=== PATIENT | female | born 1955 | race Caucasian/White ===

== ENCOUNTER 2021-05-24 11:12 | Inpatient (IN) | payer OTHER ==
[~2021-05-24] VITALS: Ht 160 cm; Wt 117.2 kg
[2021-05-24] VITALS (9 sets, daily range): BP systolic 126–173; BP diastolic 43–74
[2021-05-24 11:53] LABS: ABSOLUTE NEUTROPHILS 3.4 thou/uL (1.4-8.2); BASOPHILS 0.4 % (0.0-2.0); EOSINOPHILS 0.9 % (0.0-3.0); HEMATOCRIT 39.3 % (37.0-47.0); LYMPHOCYTES 12.9 % (24.0-44.0); MCH 29.5 pg (26.0-34.0); MCHC 33.2 g/dL (28.0-37.0); MCV 89.1 fL (80.0-100.0); MONOCYTES 8.4 % (1.0-8.0); PLATELET COUNT 108 thou/uL (150-400); POLYS 77.4 % (36.0-66.0); RBC 4.41 mil/uL (4.20-5.00); RDW 14.9 % (10.5-14.5); WBC 4.3 thou/uL (4.0-11.0)
[2021-05-24 12:39] LABS: BE(vivo) -0.9 mmol/L (-2 to +3); HCO3 23.3 mmol/L (22.0-26.0); PCO2 37.2 mmHg (35.0-45.0); PO2 58.4 mmHg (80.0-100.0); pH 7.414 (7.360-7.450); sO2 90.8 % (92.0-98.0)
[2021-05-24 15:30] LABS: BE(vivo) -1.9 mmol/L (-2 to +3); HCO3 22.8 mmol/L (22.0-26.0); PCO2 38.7 mmHg (35.0-45.0); PO2 73.4 mmHg (80.0-100.0); pH 7.388 (7.360-7.450); sO2 94.7 % (92.0-98.0)
--- NOTE | 2021-05-24 17:40 | NUR ---
ICU CALLED TO GIVE INPATIENT REPORT, WAS TOLD NURSES INCLUDING RECEIVING NURSE WERE IN A ROOM FOR INTUBATION AND TO CALL BACK IN A FEW MINUTES.
--- NOTE | 2021-05-24 18:02 | NUR ---
CALLED ICU AGAIN AT THIS TIME X 3. CALLS UNANSWERED
[2021-05-24 18:26] LABS: CALCIUM 8.5 mg/dL (8.5-10.1); POTASSIUM 5.2 mmol/L (3.5-5.1); TOTAL BILIRUBIN 0.5 mg/dL (0.2-1.0); TOTAL PROTEIN 7.3 g/dL (6.4-8.2)
[2021-05-25] VITALS (28 sets, daily range): BP systolic 139–184; BP diastolic 45–82
--- NOTE | 2021-05-25 00:57 | NUR ---
PATIENT ARRIVED AT THE UNIT AT APPROX 1900. PATIENT IS A/OX4. DENIES N/V, PAIN. ON BIPAP WITH FI02 OF 100%. AFEBRILE. VSS. ORTEGA IN PLACE WITH GOOD U/O. ATTACHED TO THE MONITOR. DENIES NEEDS. WILL KEEP MONITORING
[2021-05-25 05:39] LABS: HEMATOCRIT 38.4 % (37.0-47.0); MCH 30.1 pg (26.0-34.0); MCHC 33.9 g/dL (28.0-37.0); MCV 88.6 fL (80.0-100.0); RBC 4.33 mil/uL (4.20-5.00); RDW 14.4 % (10.5-14.5); WBC 2.7 thou/uL (4.0-11.0)
[2021-05-25 05:54] LABS: ALBUMIN 2.6 g/dL (3.4-5.0); CALCIUM 8.4 mg/dL (8.5-10.1); CREATININE 0.8 mg/dL (0.6-1.0); DIRECT BILIRUBIN 0.1 mg/dL (<0.1-0.2); POTASSIUM 4.6 mmol/L (3.5-5.1); TOTAL BILIRUBIN 0.4 mg/dL (0.2-1.0); TOTAL PROTEIN 6.6 g/dL (6.4-8.2)
--- NOTE | 2021-05-25 08:58 | HC ---
[facility] [place] [address] CONSULTATION Name: JASON FARR Room #: 240-P ADM IN M.R.#: [id number] Admission: 05/24/21 Attend Phys: Igor Padron MD Discharge: Date of : 55 Report #: [id number] THIS REPORT FOR: cc: Franchesca Tran MD, Keninde A. MD Barry,Juan Brown MD ~ DATE OF SERVICE: 05/24/2021 INFECTIOUS DISEASE CONSULTATION ATTENDING PHYSICIAN: Dr. Padron. REASON FOR EVALUATION: COVID-19 infection, complicated by pneumonitis with acute on chronic respiratory failure. HISTORY OF PRESENT ILLNESS: Chart reviewed. The patient examined. This is a 65-year-old with known history of O2 requiring COPD at 3 liters per nasal cannula who over the last few days, has noted some progressive weakness and dyspnea that has worsened over the course of last few hours. She did have a productive cough of colored sputum, did have fever as high as 102 as well. She had poor p.o. intake, loss of taste and smell. It is notable she had Moderna vaccination in December. She is generally lucid. Evaluation noted positive coronavirus testing, chest x-ray with bilateral infiltrates. ABG showed a pH 7.414, pCO2 of 37.2, pO2 of 58.4 on nonrebreather. She is currently on a BiPAP, FiO2 100%. She was initiated on therapy with ceftriaxone and azithromycin as well as dexamethasone. ALLERGIES: LISTED TO GLIPIZIDE, MORPHINE, CODEINE, ALBUTEROL, PREDNISONE CAUSES DEPRESSION, SIMVASTATIN, PAROXETINE, METFORMIN, DOXEPIN, TRAZODONE, CYCLOBENZAPRINE, MIRTAZAPINE, FEXOFENADINE, OLANZAPINE, MELOXICAM, ATORVASTATIN, ROSIGLITAZONE, DULOXETINE, SITAGLIPTIN. PAST MEDICAL HISTORY: Above noted O2 requiring COPD. SOCIAL HISTORY: Nonsmoker. No ethanol, tobacco or illicit drug use. FAMILY HISTORY: Noncontributory. REVIEW OF SYSTEMS: Otherwise, unremarkable. Denies significant GI related complaints. PHYSICAL EXAMINATION: GENERAL: She appears chronically ill and undernourished. She is generally lucid. Has difficulty speaking due to the BiPAP, but is tracking well. She is chronically ill appearing and undernourished. VITAL SIGNS: Temperature not recorded, pulse 65, respirations 30, blood [address] [address] CONSULTATION Name: JASON FARR Room #: 240-P [facility] IN M.R.#: [id number] Admission: 05/24/21 Attend Phys: Igor Padron MD Discharge: Date of : 55 Report #: [id number] pressure 152/59. SKIN: Warm, dry, no rashes. HEENT: Normocephalic. Extraocular muscles intact. BiPAP in place. NECK: Supple. LUNGS: Scattered coarse breath sounds bilaterally. HEART: Distant, regular. I do not appreciate a murmur. ABDOMEN: Obese, somewhat distended, firm, nontender. EXTREMITIES: No cyanosis. GENITOURINARY AND RECTAL: Deferred. LABORATORY DATA: ABGs: pH 7.388, pCO2 of 38.7, pO2 of 73.4, FiO2 of 100%. ProBNP of 137. Lactic acid 1.4. Troponin less than 0.06. CBC: White count of 4.3, H and H 13.0 and 39.3, platelets of 108. IMAGING STUDIES: Chest x-ray: Diffuse alveolar pulmonary infiltrates, mild cardiomegaly. ASSESSMENT: COVID-19 infection, complicated by pneumonitis and acute on chronic respiratory failure, may be multifactorial, can exclude a component of congestive heart failure. PLAN: We will continue empiric therapy, make adjustments to the antibacterials, initiate remdesivir in addition to corticosteroids and vitamins. Discussed with pharmacy, likely candidate for Actemra. She remains quite tenuous at this point and may well have deteriorating status before she improves. Continue to monitor expectantly and risk for additional complications. <ELECTRONICALLY SIGNED> By: Juan Gloria MD 05/25/21 0858 [id number] [id number] Juan Gloria MD /nt
--- NOTE | 2021-05-25 09:42 | EKG ---
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
--- NOTE | 2021-05-25 13:54 | NUR ---
Patient admits with SOA, admitted to ICU. Patient currently on Bipap. Patient positive with COVID 19. Rec moderna vaccine in december. Son Jeramie contact [phone]. Chart reviewed. Attempted to call unit. RN unable to answer. [facility] following.
--- NOTE | 2021-05-25 14:39 | NUR ---
1145HRS - ATTEMPT TO HAVE PT PRONE HERSELF WITH ASSISTANCE, PT REFUSED.
--- NOTE | 2021-05-25 23:34 | NUR ---
PATIENT REMAINS A/O X4. DENIES ANY SOA. N/V. MEDS GIVEN ORDERED.PATIENT HAS TX ORDERS. REPORT CALLED TO 3W RN. PATIENT OFF THE UNIT AT APPROX 2300 VIA WHEELCHAIR. ON RA. ATTACHED TO MONITOR. ALL QUESTIONS ANSWERED.
[2021-05-26] VITALS (24 sets, daily range): BP systolic 149–189; BP diastolic 51–77
[2021-05-26 04:31] LABS: HEMATOCRIT 39.7 % (37.0-47.0); HEMOGLOBIN 13.5 gm/dL (12.0-15.0); MCH 30.2 pg (26.0-34.0); MCV 88.9 fL (80.0-100.0); RBC 4.46 mil/uL (4.20-5.00); RDW 14.8 % (10.5-14.5); WBC 5.8 thou/uL (4.0-11.0)
[2021-05-26 04:49] LABS: ALBUMIN 2.6 g/dL (3.4-5.0); CALCIUM 8.1 mg/dL (8.5-10.1); CREATININE 0.8 mg/dL (0.6-1.0); DIRECT BILIRUBIN 0.2 mg/dL (<0.1-0.2); PHOSPHORUS 2.2 mg/dL (2.6-4.7); POTASSIUM 4.3 mmol/L (3.5-5.1); TOTAL BILIRUBIN 0.5 mg/dL (0.2-1.0); TOTAL PROTEIN 6.5 g/dL (6.4-8.2)
--- NOTE | 2021-05-26 14:15 | NUR ---
PT CONFORTABLE IN BED. TACHYPNEIC BUT SAYS SHE DOES NOT FEEL FATIGUED. RN EDUCATED PT ON IMPORTANCE TO LET RN KNOW IF SHE IS FEELING TIRED. PT AFEBRILE, ADEQUATE UOP, NO BM, NO DIET ORDERED. PT REPOSITIONS SELF. NEEDS HOME HTN MEDS RESTARTED. PT HAS BEEN THOUROUGHLY UPDATED AND EDUCATED ON PT CONDITION AND POC. PT SLOWLY PROGRESSING TOWARDS POC.
--- NOTE | 2021-05-26 19:29 | NUR ---
CALLED DR. REINA. PT HAS NO CENTRAL LINE TO START TPN. MD STATES TO CHANGE TO PPN FOR NOW.
--- NOTE | 2021-05-26 19:30 | NUR ---
PT NOT MOVING TOWARDS GOALS. REMAINS ON BIPAP AT 90%. READILY DESATS WITH MOVEMENT.
[2021-05-27] VITALS (20 sets, daily range): BP systolic 140–179; BP diastolic 50–76
[2021-05-27 03:13] LABS: HEMATOCRIT 41.3 % (37.0-47.0); MCH 29.6 pg (26.0-34.0); MCHC 33.8 g/dL (28.0-37.0); MCV 87.6 fL (80.0-100.0); RBC 4.72 mil/uL (4.20-5.00); RDW 14.7 % (10.5-14.5); WBC 8.7 thou/uL (4.0-11.0)
[2021-05-27 03:25] LABS: MAGNESIUM 1.9 mg/dL (1.8-2.4); PHOSPHORUS 2.4 mg/dL (2.5-4.9)
[2021-05-27 03:29] LABS: CALCIUM 8.2 mg/dL (8.5-10.1); CREATININE 0.7 mg/dL (0.6-1.0); POTASSIUM 4.2 mmol/L (3.5-5.1)
[2021-05-27 03:30] LABS: ALBUMIN 2.8 g/dL (3.4-5.0); CALCIUM 8.3 mg/dL (8.5-10.1); CREATININE 0.7 mg/dL (0.6-1.0); DIRECT BILIRUBIN 0.2 mg/dL (<0.1-0.2); PHOSPHORUS 2.3 mg/dL (2.5-4.9); POTASSIUM 4.2 mmol/L (3.5-5.1); TOTAL BILIRUBIN 0.6 mg/dL (0.2-1.0); TOTAL PROTEIN 6.5 g/dL (6.4-8.2)
--- NOTE | 2021-05-27 09:03 | NUR ---
ASSSUMED CARE OF PT AT 0700 PT COMPLAINING OF CHEST PAIN THAT RADIATES TO HER BACK. PAIN IS 08/12. DR. LAURA CONTACTED FOR ORDERS AT 0903.
--- NOTE | 2021-05-27 10:40 | EKG ---
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: JOSE MIGUEL : 1955 Requested By: Igor Padron Order Number: [id number] MD: Claudy Starr Measurements Intervals [place] Rate: 71 P: 44 DC: 142 QRS: -15 QRSD: 122 T: -1 QT: 425 QTc: 462 Interpretive Statements Sinus rhythm Right bundle branch block Left ventricular hypertrophy Compared to ECG 05/24/2021 11:19:51 No significant changes Electronically Signed On 05-27-2021 10:40:13 CDT by Claudy Starr [email or web address] <ELECTRONICALLY SIGNED> By: Claudy Starr MD, [facility] 05/27/21 1040 6 6 Claudy Starr MD, FAC /EPI
[2021-05-28] VITALS (40 sets, daily range): BP systolic 136–198; BP diastolic 44–78
[2021-05-28 04:17] LABS: PHOSPHORUS 2.6 mg/dL (2.5-4.9)
[2021-05-28 04:21] LABS: ALBUMIN 2.9 g/dL (3.4-5.0); CALCIUM 8.3 mg/dL (8.5-10.1); CREATININE 0.7 mg/dL (0.6-1.0); DIRECT BILIRUBIN 0.2 mg/dL (<0.1-0.2); PHOSPHORUS 2.6 mg/dL (2.5-4.9); POTASSIUM 3.9 mmol/L (3.5-5.1); TOTAL BILIRUBIN 0.6 mg/dL (0.2-1.0); TOTAL PROTEIN 6.4 g/dL (6.4-8.2)
--- NOTE | 2021-05-28 11:45 | NUR ---
Discussed during los and unite rounds. possible will need to be intubated today. going to get central line for nutritional support. will cont following as needed for dc needs.
--- NOTE | 2021-05-28 11:51 | NUR ---
RN ASSUMED CARE AT 0700. PT A&OX4. PT ON BIPAP AT 100% FIO2 WITH O2 SAT 91%. PULMONARY DOCTOR ROUNDED THIS AM AND STATES HIS PLAN TO INTUBATE PT TODAY BETWEEN 12:30-1300. PT IS AWARE OF PLAN TO INTUBATE.
--- NOTE | 2021-05-28 12:05 | NUR ---
RN ATTEMPTED TO CALL PT'S SON ALPA. ALPA DID NOT ANSWER 1ST PHONE CALL ATTEMPT BUT DID CALL BACK AND RN SPOKE WITH HIM. ALPA HAS NOT BEEN CONTACTED THAT PT WAS EVEN IN HOSPITAL OR WAS FIGHTING COVID. ALPA THANKED RN FOR CALLING HIM AND ASKED THAT WE TELL HIS MOM THAT HE AND HIS BROTHER LOVE HER. RN REASSURED HIM THAT SHE WILL LET THE PATIENT KNOW. ALPA'S NUMBER IS [phone].
--- NOTE | 2021-05-28 12:30 | NUR ---
ICU rounds: note pending intubation. Keep on PPN until ready to start enteral nutrition, then recommend vital HP at 30ml/hr. Will continue to follow for final goal rate depending on pts propofol demands
--- NOTE | 2021-05-28 15:34 | NUR ---
VAT CONSULTED FOR CVAD. PT'S LABS,MEDS,HX,ORDER REVIEWED. DISCUSSED BENEFITS AND RISK TO PT, VERBALIZED UNDERSTANDING. WHEN ATTEMPTING TO POSITION PT TO ASSESS IJ'S. PT UNABLE TO TOLERATED HOB LOWERED, WHEN ATTEMPTING PT LIFTED HER HEAD OFF THE PILLOW TO SIT UP. DISCUSSED WITH PT THAT PICC LINE MAYBE BETTER SINCE PT CAN'T POSITION. PT LESS ANXIOUS ABOUT PICC. AMOL BASILIC WAS WIDELY PATENT WITH USG, MEASURED 38%. 5FR TL POWER PICC TRIMMED TO 45CM INSERTED TO 3CM EXTERNAL HAD PEAKED-PWAVES ON 3CG FOR CONFIRMATION. PT TOLERATED WELL AND PICC RELEASED FOR IMMEDIATE USE PER PROTOCOL TO HALIE LONG
--- NOTE | 2021-05-28 16:34 | NUR ---
DR. LOERA ROUNDED AT 1615 AND DECIDED PT DID NOT NEED TO BE INTUBATED AT THIS TIME. WILL CLOSELY MONITOR PT FOR ANY STATUS CHANGES. WILL NOTIFY FAMILY THAT PT WAS NOT INTUBATED AT THIS TIME.
--- NOTE | 2021-05-28 19:23 | NUR ---
PT'S SON COTY WAS CALLED AND UPDATED THAT PHYSICIAN DECIDED NOT TO INTUBATE AT THIS TIME.
[2021-05-29] VITALS (57 sets, daily range): BP systolic 65–162; BP diastolic 31–78
[2021-05-29 05:27] LABS: BE(vivo) 0 mmol/L (-2 to +3); PCO2 37.1 mmHg (35.0-45.0); pH 7.428 (7.360-7.450); sO2 89.1 % (92.0-98.0)
[2021-05-29 05:28] LABS: PO2 54.1 mmHg (80.0-100.0)
[2021-05-29 05:54] LABS: HEMATOCRIT 40.9 % (37.0-47.0); HEMOGLOBIN 13.9 gm/dL (12.0-15.0); MCH 29.7 pg (26.0-34.0); MCV 87.3 fL (80.0-100.0); RBC 4.68 mil/uL (4.20-5.00); RDW 14.6 % (10.5-14.5)
[2021-05-29 06:20] LABS: CALCIUM 8.7 mg/dL (8.5-10.1); CREATININE 0.7 mg/dL (0.6-1.0); MAGNESIUM 1.8 mg/dL (1.8-2.4); PHOSPHORUS 3.1 mg/dL (2.6-4.7)
--- NOTE | 2021-05-29 08:16 | NUR ---
ASSUME CARE 1900. PT/VITALS STABLE. INTERMITTENT NECK PAIN WITH RELIEF FROM TYLENOL. PT DESATS WITH MILD EXERTION. ON BIPAP WITH 100% FIO2 AND SATS 90-92%. ASSESSMENT CHARTED. PROGRESSING POORLY TOWARDS POC. BP RUNS HIGH WITH HYDRALAZINE ORDERS FOR SBP> 160. A/O X 4. COMMUNICATES NEEDS WELL. PLAN IS TO CONTINUE TO MONITOR AND MANAGE RESPIRATORY SYSTEM/INFECTION. WILL CONTINUE TO MONITOR AND FOLLOW WITH POC
--- NOTE | 2021-05-29 10:30 | NUR ---
PT NEEDING INTUBATION PROCEDURE DONE AT THIS TIME, CONSENT FORM NEXT TO RN, RN ATTEMPTED TO CALL PT'S SON ON FILE NUMBER [phone], NO ANSWER AT THIS TIME. PT NOT ABLE TO SIGN CONSENT, PT IS HYPOXIC (REASON FOR INTUBATION), AWAITING PHYSICIANS DECISION AT THIS TIME
[2021-05-29 13:45] LABS: BE(vivo) -4.1 mmol/L (-2 to +3); HCO3 21.1 mmol/L (22.0-26.0); PCO2 39.2 mmHg (35.0-45.0); pH 7.348 (7.360-7.450); sO2 90.7 % (92.0-98.0)
--- NOTE | 2021-05-29 15:36 | NUR ---
SW reviewed chart and spoke with nursing and attending physician. Pt remains in the ICU in Enhanced Isolation due to COVID. Pt was intubated earlier today. Pt is afebrile and on IV abx and IV steroids. NILDA spoke with pt's son, Jeramie, via phone. Introduced role of SW. Pt is normally alert/orientated x 4. Pt lives alone in an apt with elevator access at [facility]. Pt has a scooter. Pt is on home O2. Pt's son is unsure name of home O2 provider and liter flow. Pt has had HH in the past. No hx of post-acute placement. Pt's PCP is Dr. Franchesca Tran. Pt's son, Jeramie, lives in [place] and his brother, Jorge Luis, lives in [place]. Pt does have a sister who lives in area. Therapy evals will need to be ordered when pt is able to participate. NILDA is following to assist as needed with discharge planning.
--- NOTE | 2021-05-29 21:36 | NUR ---
AT THE TIME OF ARRIVAL PT WAS AT O2 SAT OF 88% WHILE ON 100% BIPAP, WAS REACHED AND NOTIFIED AND ASKED IF INTUBATION WAS IN THE PLANS TODAY. AT 1100 PT INTUBATED AND LATER IN THE EVENING PT BRONCHED. WAS AT O2 SAT OF 89% S/P INTUBATION. WRIST RESTRAINTS WERE PLACED. PT'S SON WAS CALLED TO NOTIFY OF EVENTS, RN NOTIFIED THAT PT WAS ON THE VENTILATOR MACHINE AT THIS TIME AND ON THE MAXIMAL SETTING ON THE FIO2. SON VERBALIZED UNDERSTANDING AND STATED THAT HE WILL CALL AT A LATER TIME. RN PROVIDED REPORT, RN SIGNING OFF
[2021-05-29 23:42] LABS: BE(vivo) -8.7 mmol/L (-2 to +3); HCO3 22.1 mmol/L (22.0-26.0); PO2 99.7 mmHg (80.0-100.0); sO2 95.1 % (92.0-98.0)
[2021-05-29 23:43] LABS: PCO2 69.2 mmHg (35.0-45.0); pH 7.122 (7.360-7.450)
[2021-05-30] VITALS (52 sets, daily range): BP systolic 103–138; BP diastolic 40–58
[2021-05-30 04:48] LABS: BE(vivo) -1.2 mmol/L (-2 to +3); HCO3 28.9 mmol/L (22.0-26.0); PO2 85.1 mmHg (80.0-100.0); sO2 93.9 % (92.0-98.0)
[2021-05-30 04:49] LABS: PCO2 73.6 mmHg (35.0-45.0); pH 7.212 (7.360-7.450)
[2021-05-30 05:20] LABS: CALCIUM 7.4 mg/dL (8.5-10.1); CREATININE 1.1 mg/dL (0.6-1.0); MAGNESIUM 2.2 mg/dL (1.8-2.4); PHOSPHORUS 6.3 mg/dL (2.5-4.9)
[2021-05-30 05:36] LABS: POTASSIUM 5.3 mmol/L (3.5-5.1)
--- NOTE | 2021-05-30 06:14 | NUR ---
ASSUMED CARE OF PATIENT AT 1900. O2 IN THE 'S. DR MONTANO NOTIFIED, AND CAME TO BEDSIDE. VENT SETTING ADJUSTED. SLIGHT IMPROVEMENT, THEN DECLINE IN O2 SAT, RESPIRATIONS INCREASED. DR MONTANO NOTIFIED, ORDER FOR NIMBEX RECIEVED. NIMBEX INITIATED, TITRATED TO DECREASE RESPIRATORY RATE. BLOOD SUGARS CRITICALLY HIGH, ORDERS RECIEVED FROM Demetris ISSA NP. BLOOD SUGARS CONTINUE TO BE CRITICALLY HIGH, INSULIN GTT ORDERED. PATIENT NOT PROGRESSING TOWARDS POC GOALS.
--- NOTE | 2021-05-30 09:40 | NUR ---
PATIENT'S SON, ALPA, WAS CALLED AT [phone] AND HE WAS UPDATED AND EDUCATED ON THE PATIENT'S CONDITION AND PLAN OF CARE.
--- NOTE | 2021-05-30 16:29 | 2DMMODE ---
[facility] [place] [address] 2 D/M-MODE ECHOCARDIOGRAM Name: JASON FARR Room #: 240-P ADM IN M.R.#: [id number] Admission: 05/24/21 Attend Phys: Igor Padron MD Discharge: Date of : 55 Report #: [id number] THIS REPORT FOR: cc: Franchesca Tran MD, Keninde A. MD Lundgren,Claudy David MD [facility] ~ APPROVED REPORT Patient Location: In-Patient ICU Room #: 240 Stress Nurse: Heart rate 67 bpm. Blood pressure 132/37mmHg. Very limited study. Patient is Covid positive, morbid obesity, supine on a ventilator. Limited images Grossly normal chamber sizes. Left ventricular systolic function appears normal ejection fraction 60-65% with normal wall thickness. No valvular abnormalitiesare noted. There is n No pericardial effusion. Conclusion <ELECTRONICALLY SIGNED> By: Claudy Starr MD, [facility] 05/30/21 1628 27 27 Claudy Starr MD, FACC /INF
[2021-05-31] VITALS (39 sets, daily range): BP systolic 109–156; BP diastolic 44–66
--- NOTE | 2021-05-31 03:00 | NUR ---
Pt's son call for an updates.
[2021-05-31 05:31] LABS: ABSOLUTE NEUTROPHILS 10.1 thou/uL (1.4-8.2); BASOPHILS 0.3 % (0.0-2.0); EOSINOPHILS 0.4 % (0.0-3.0); HEMATOCRIT 34.2 % (37.0-47.0); LYMPHOCYTES 4.3 % (24.0-44.0); MCH 29.4 pg (26.0-34.0); MCHC 33.4 g/dL (28.0-37.0); MCV 87.9 fL (80.0-100.0); MONOCYTES 4.7 % (1.0-8.0); POLYS 90.3 % (36.0-66.0); RBC 3.89 mil/uL (4.20-5.00); WBC 11.3 thou/uL (4.0-11.0)
[2021-05-31 06:16] LABS: D-DIMER 2.23 ug/mLFEU (0.19-0.50); INR 1.11
[2021-05-31 06:17] LABS: HEMOGLOBIN 11.4 gm/dL (12.0-15.0); PLATELET COUNT 109 thou/uL (150-400)
[2021-05-31 06:37] LABS: ALBUMIN 2.3 g/dL (3.4-5.0); CREATININE 0.7 mg/dL (0.6-1.0); TOTAL BILIRUBIN 0.3 mg/dL (0.2-1.0); TOTAL PROTEIN 5.1 g/dL (6.4-8.2)
[2021-05-31 06:41] LABS: POTASSIUM 4.1 mmol/L (3.5-5.1)
--- NOTE | 2021-05-31 07:00 | NUR ---
Pt remains in critical conditions. Continue to be on vent ,sedated and paralyzed due to ARDS. She is tolerated well. No sedation vacation in this shift due to above conditions. She is on high PEEP ,noted sub-q air on chest and neck areas. VSS. CXR obtained . Notified for above fidning. She is not making any progress in this shift.
--- NOTE | 2021-05-31 09:50 | NUR ---
SPOKE WITH SON FROM [place] AND UPDATED HIM ON HIS MOTHER'S STATUS, QUESTIONS ANSWERED AND REASSURANCE GIVEN.
--- NOTE | 2021-05-31 20:20 | NUR ---
PATIENT IS NOT PROGRESSING TOWARDS OUTCOME GOALS SHE REMAINS SEDATED AND PARALIZED FOR VENT MANAGEMENT. O2 SAT REMAINS IN THE UPPER 90'S. PLEASE REFER TO ASSESSMENTS.
[2021-06-01] VITALS (48 sets, daily range): BP systolic 120–180; BP diastolic 50–88
[2021-06-01 04:50] LABS: ALBUMIN 2.2 g/dL (3.4-5.0); CALCIUM 7.2 mg/dL (8.5-10.1); CREATININE 0.5 mg/dL (0.6-1.0); DIRECT BILIRUBIN 0.1 mg/dL (<0.1-0.2); PHOSPHORUS 3.2 mg/dL (2.6-4.7); POTASSIUM 3.9 mmol/L (3.5-5.1); TOTAL BILIRUBIN 0.4 mg/dL (0.2-1.0); TOTAL PROTEIN 5.2 g/dL (6.4-8.2)
--- NOTE | 2021-06-01 04:53 | NUR ---
ASSUMED CARE OF PATIENT AT 2199. FOUND PATIENT ON VENTILATOR SETTINGS OF 30/PIP 40/.80 +18. AT THE 399 ROUND I DECREASED THE PATIENTS FIO2 TO 70%. WILL MONITOR SATURATION. PATIENT SHOWING NO SIGNS OF DISTRESS AT THIS TIME.
--- NOTE | 2021-06-01 08:21 | NUR ---
RN A RUNNER THIS MORNING, WENT IN TO ASSIST BITA RN FOR BS CHECK, BS LEVEL EXTRA THERAPEUTIC, INSTRUCTED BY RN TO ADJUST DOSAGING TO 5U/HR, RN ADJUSTED PER PRIMARY RN'S REQUEST, RN ALSO CALLED BY WAR ROOM STATING P WAVE INVERSION OCCURED AT 0730, RN COMMUNICATED THIS TO PRIMARY RN WELL.
--- NOTE | 2021-06-01 09:29 | NUR ---
Wts up from 240 to 258 lb. May want to consider stop IV maintenance fluids since receiving water flushes. Continue to progress goal TF to 65ml/hr.
--- NOTE | 2021-06-01 15:01 | NUR ---
PATIENT'S SON, ALPA, CALLED AND WAS SPOKEN TO FROM [phone] AND HE WAS UPDATED AND EDUCATED ON THE PATIENT'S CONDITION AND PLAN OF CARE.
--- NOTE | 2021-06-01 15:51 | NUR ---
COVID +, cont. on enhanced isolation. Discussed during unite am rounds, cont. to wear face mask and shield uring rounds and los. Vent, tube feed for nutritional support. No anticipated dc over the weekend, will cont. following as needed for dc needs.
[2021-06-02] VITALS (49 sets, daily range): BP systolic 128–199; BP diastolic 50–78
[2021-06-02 04:48] LABS: HEMATOCRIT 37.3 % (37.0-47.0); HEMOGLOBIN 12.2 gm/dL (12.0-15.0); MCH 29.2 pg (26.0-34.0); MCHC 32.7 g/dL (28.0-37.0); MCV 89.2 fL (80.0-100.0); PLATELET COUNT 136 thou/uL (150-400); RBC 4.18 mil/uL (4.20-5.00); WBC 16.7 thou/uL (4.0-11.0)
[2021-06-02 05:02] LABS: ALBUMIN 2.4 g/dL (3.4-5.0); ANION GAP < 0 mmol/L (7-16); BUN 30 mg/dL (7-18); CALCIUM 7.3 mg/dL (8.5-10.1); CHLORIDE 99 mmol/L (98-107); CO2 42 mmol/L (21-32); CREATININE 0.5 mg/dL (0.6-1.0); DIRECT BILIRUBIN 0.1 mg/dL (<0.1-0.2); GLUCOSE 201 mg/dL (74-106); PHOSPHORUS 3.6 mg/dL (2.5-4.9); POTASSIUM 4.5 mmol/L (3.5-5.1); SGOT 29 U/L (15-37); SGPT 31 U/L (30-65); SODIUM 139 mmol/L (136-145); TOTAL BILIRUBIN 0.4 mg/dL (0.2-1.0); TOTAL PROTEIN 5.4 g/dL (6.4-8.2)
[2021-06-02 06:07] LABS: ABSOLUTE NEUTROPHILS 13.9 thou/uL (1.4-8.2); ATYPICAL LYMPHS 2 %; METAMYELOCYTES 1 %
--- NOTE | 2021-06-02 10:50 | NUR ---
PATIENT'S SON, ALPA, CALLED FROM [phone] AND HE WAS UPDATED AND EDUCATED ON THE PATIENT'S CONDITION AND PLAN OF CARE.
[2021-06-02 12:54] LABS: BE(vivo) 15.7 mmol/L (-2 to +3); HCO3 44.8 mmol/L (22.0-26.0); PO2 71.8 mmHg (80.0-100.0); pH 7.378 (7.360-7.450); sO2 93.3 % (92.0-98.0)
[2021-06-02 13:44] LABS: PCO2 77.9 mmHg (35.0-45.0)
--- NOTE | 2021-06-02 17:20 | NUR ---
ASSUMED CARE OF PATIENT AT 0600. SETTINGS WERE RATE 30/ PRESSURE 40/ .90 +18 AFTER CRITICAL VALUES ON ABG DR MONTANO INITIATED CHANGES OF DECREASING PEEP TO 16. NO FURTHER CHANGES WERE MADE TODAY.
[2021-06-03] VITALS (40 sets, daily range): BP systolic 127–222; BP diastolic 49–101
[2021-06-03 04:39] LABS: BE(vivo) 16.7 mmol/L (-2 to +3); HCO3 43.3 mmol/L (22.0-26.0); pH 7.483 (7.360-7.450); sO2 86.7 % (92.0-98.0)
[2021-06-03 04:40] LABS: PO2 49.6 mmHg (80.0-100.0)
[2021-06-03 05:50] LABS: ABSOLUTE NEUTROPHILS 18.2 thou/uL (1.4-8.2); BASOPHILS 0.1 % (0.0-2.0); EOSINOPHILS 0.7 % (0.0-3.0); HEMATOCRIT 37.9 % (37.0-47.0); HEMOGLOBIN 12.5 gm/dL (12.0-15.0); LYMPHOCYTES 5.6 % (24.0-44.0); MCH 29.6 pg (26.0-34.0); MCV 89.7 fL (80.0-100.0); MONOCYTES 7.1 % (1.0-8.0); PLATELET COUNT 148 thou/uL (150-400); POLYS 86.5 % (36.0-66.0); RBC 4.22 mil/uL (4.20-5.00); RDW 15.7 % (10.5-14.5)
[2021-06-03 06:15] LABS: ALBUMIN 2.4 g/dL (3.4-5.0); CALCIUM 7.8 mg/dL (8.5-10.1); CREATININE 0.6 mg/dL (0.6-1.0); DIRECT BILIRUBIN 0.1 mg/dL (<0.1-0.2); PHOSPHORUS 3.4 mg/dL (2.5-4.9); POTASSIUM 5.1 mmol/L (3.5-5.1); TOTAL BILIRUBIN 0.4 mg/dL (0.2-1.0); TOTAL PROTEIN 5.5 g/dL (6.4-8.2)
--- NOTE | 2021-06-03 07:29 | NUR ---
PATIENT REMAINS ON THE VENT. SATS 85-90% DR MONTANO NOTIFIED. ORDER FOR CHEST X RAY GIVEN. CHEST X RAY NEGATIVE. AFEBRILE. LOW SATS OTHERWISE VSS. DR MONTANO AWARE. ORTEGA WITH GOOD U/O. TALKED TO DR MONTANO THIS AM ON SATS. NO ORDERS OR CHANGES TO VENT GIVEN. REPORT GIVEN TO STAR LONG
--- NOTE | 2021-06-03 10:28 | NUR ---
ASSUMED CARE AT 0700. PATIENT'S SON, ALPA, CALLED FROM [phone] AND HE WAS UPDATED AND EDUCATED ON THE PATIENT'S CONDITION AND PLAN OF CARE.
--- NOTE | 2021-06-03 17:13 | NUR ---
ASSUMED CARE OF PATIENT AT 0600. SETTINGS ON THE VENITLATOR WERE RATE 30 PRESSURE 40 100% +18. NO CHANGES WERE MADE TO THESE SETTINGS THROUGHOUT THE DURATION OF THE SHIFT. PATIENT HAVING TROUBLE MAINTAINING SATURATION. HER TIDAL VOLUMES HAVE ALSO DECREASED AND DR MONTANO HAS BEEN NOTIFIED. BRONCHOSCOPY SCHEDULED FOR TOMORROW. ORDER PLACED, CONSENT SIGNED AND TUBE FEEDS WILL STOP AT MIDNIGHT.
--- NOTE | 2021-06-03 20:05 | NUR ---
Call pt's son Mr.John Nicki cota concerning of her conditions. Updates him about her current status. I told pt's son that pt has been having trouble with oxygination. On high PEEP and on 100% of FiO2 at this time. Her current O2 sat is only 86-88% on that. Pt is currently full code. If her oxygination hasn't been improved and get worse tonight. She is likely will develop arrythmia that can lead to cardiac arrest. He state to me that me that him and his brother (Jeramie Caceres) discussed about this and they don't want to keep her alive on life support. I asked them if she stop breathing on her own despite on vent and her heart stop ,what will they want us to do. He stated he doesn't want her to be resuscitated. I explained to him that despite she is no code. We will continue with other treatment. He is agreed for her to be Do Not resuscitate. I let Sintia mazariegos went over code status with him and confirmed his requested for her to be DNR.
[2021-06-04] VITALS (10 sets, daily range): BP systolic 112–157; BP diastolic 42–62
[2021-06-04 05:19] LABS: HEMATOCRIT 37.2 % (37.0-47.0); MCH 29.5 pg (26.0-34.0); MCHC 32.2 g/dL (28.0-37.0); MCV 91.5 fL (80.0-100.0); RBC 4.07 mil/uL (4.20-5.00); RDW 15.5 % (10.5-14.5); WBC 29.7 thou/uL (4.0-11.0)
[2021-06-04 05:53] LABS: ALBUMIN 2.7 g/dL (3.4-5.0); CALCIUM 7.9 mg/dL (8.5-10.1); CREATININE 1.2 mg/dL (0.6-1.0); DIRECT BILIRUBIN 0.2 mg/dL (<0.1-0.2); PHOSPHORUS 9.4 mg/dL (2.5-4.9); TOTAL BILIRUBIN 0.5 mg/dL (0.2-1.0); TOTAL PROTEIN 5.8 g/dL (6.4-8.2)
[2021-06-04 05:54] LABS: POTASSIUM 5.9 mmol/L (3.5-5.1)
--- NOTE | 2021-06-04 06:10 | NUR ---
Stop TF around 3 am for possible Bronch today by . Residual checked with >700 cc of dark brown gastric content returned noted. Possible SBO ? Notified during round this am.
--- NOTE | 2021-06-04 06:30 | NUR ---
Pt's son Mr.Brandon Caceres called for an updates. He stated to me that him and his brother( Mr.John Caceres ) discussed about his mother conditions last night. They are aware of her critical conditions due to COVID 19. They would like to stop all of her treatment. He stated to me " It has been so many days since my mother on 100% of oxyen. She doesn' want to be kept alive on machine like his. She has a good life. She has been having lung issue for awhile now". Offering emotional support to him. Will send message to regarding of family wished to withdrawal care on her.
--- NOTE | 2021-06-04 10:54 | NUR ---
SPOKE WITH PATIENT'S SON, ALPA, AT 0930 AND HE INFORMED THIS RN THAT HE AND HIS BROTHER DID NOT WANT TO FACETIME WITH PATIENT PRIOR TO COMFORT CARE MEASURES. HE DID REQUEST A SECTION HAND HELPER "PRAY OVER HER." SECTION HAND HELPER PAGED 4 TIMES BUT THIS RN HAS NOT RECEIVED A RESPONSE. HOSPITALIST INFORMED OF DECISION TO GO COMFORT.
--- NOTE | 2021-06-04 11:35 | NUR ---
Chart review, Discussed during los. COVID +. Enhanced Isolation. Remains on vent, nutritional support today. Family decided to go comfort care today. Will cont following as needed.
== END 2021-06-04 11:20 | DRG 870 ==
LOC: ER 11:12 → EROBS 12:28 → ICU 12:28
PROVIDERS: Emergency Medicine; Internal Medicine; Internal Medicine Pulmonary Disease; Pediatrics; Specialist; ADMIT Hospitalist; ATTEND Hospitalist
PROC: 5A09557 Assistance with Respiratory Ventilation, Greater than 96 Consecutive Hours, Continuous Positive Airway Pressure (ICD-10-PCS; principal; 2021-05-24)
PROC: XW033H5 Introduction of Tocilizumab into Peripheral Vein, Percutaneous Approach, New Technology Group 5 (ICD-10-PCS; principal; 2021-05-24)
PROC: XW033E5 Introduction of Remdesivir Anti-infective into Peripheral Vein, Percutaneous Approach, New Technology Group 5 (ICD-10-PCS; principal; 2021-05-24)
PROC: B548ZZA Ultrasonography of Superior Vena Cava, Guidance (ICD-10-PCS; 2021-05-28)
PROC: 02HV33Z Insertion of Infusion Device into Superior Vena Cava, Percutaneous Approach (ICD-10-PCS; 2021-05-28)
PROC: 5A1955Z Respiratory Ventilation, Greater than 96 Consecutive Hours (ICD-10-PCS; 2021-05-29)
PROC: 0BH18EZ Insertion of Endotracheal Airway into Trachea, Via Natural or Artificial Opening Endoscopic (ICD-10-PCS; 2021-05-29)
PROC: 0B9J8ZX Drainage of Left Lower Lung Lobe, Via Natural or Artificial Opening Endoscopic, Diagnostic (ICD-10-PCS; 2021-05-30)
DX: A41.9 Sepsis, unspecified organism (principal); J12.82 Pneumonia due to coronavirus disease 2019; U07.1 COVID-19; J15.1 Pneumonia due to Pseudomonas; J80 Acute respiratory distress syndrome; J44.1 Chronic obstructive pulmonary disease with (acute) exacerbation; J44.0 Chronic obstructive pulmonary disease with (acute) lower respiratory infection; G93.40 Encephalopathy, unspecified; R57.9 Shock, unspecified; Z68.42 Body mass index [BMI] 45.0-49.9, adult; I10 Essential (primary) hypertension; D64.9 Anemia, unspecified; G47.33 Obstructive sleep apnea (adult) (pediatric); E66.01 Morbid (severe) obesity due to excess calories; T70.29XA Other effects of high altitude, initial encounter; X58.XXXA Exposure to other specified factors, initial encounter; E87.5 Hyperkalemia; D69.6 Thrombocytopenia, unspecified; E11.9 Type 2 diabetes mellitus without complications; Z88.5 Allergy status to narcotic agent; Z88.8 Allergy status to other drugs, medicaments and biological substances; Z91.018 Allergy to other foods
CPT/HCPCS: 10078; 27000; 50455